=== PATIENT | female | born 1965 | race African-American/Black ===

== ENCOUNTER 2019-06-05 18:43 | Emergency (ER) | payer SELFPAY ==
[~2019-06-05] VITALS: Ht 165.1 cm; Wt 73.0 kg
[2019-06-05] MEDS ORDERED: KETOROLAC 60MG/2ML VIAL IM ONE (19:30)
[2019-06-05 19:42] VITALS: BP 118/80
== END 2019-06-05 19:44 | disposition home or self-care (01) ==
LOC: ER 18:43
DX: M54.42 Lumbago with sciatica, left side (principal)
CPT/HCPCS: 96372; 99283; J1885